=== PATIENT | female | born 1975 | race Caucasian/White ===

== ENCOUNTER → 2023-12-27 | Day surgery (SDC) | payer SELFPAY ==
[2023-12-16 12:25] VITALS: BMI 24.5
[~2023-12-27] MED LIST: DEXAMETHASONE SOD PHOSPHATE 4 MG/1 ML VIAL ONE; EPINEPHrine/PF 1 MG/1 ML (1:1,000) AMPULE ONE; FENTANYL CITRATE/PF 50 MCG/ML VIAL ONE; LACTATED RINGERS SOLUTION 1,000 ML IV SCH; LIDOCAINE HCL 1%, 10 MG/ML (20ML VIAL) ONE; MIDAZOLAM HCL 2 MG/2 ML SINGLE DOSE VIAL ONE; ONDANSETRON 4 MG/2 ML VIAL IVPB PRN; ONDANSETRON 4 MG/2 ML VIAL ONE; PROPOFOL 40 ML ONE; PROPOFOL 60 ML ONE; PROPOFOL 80 ML ONE; ROCURONIUM BROMIDE 50 MG/5 ML SYRINGE ONE; ceFAZolin SODIUM 1 GM VIAL ONE; oxyCODONE HCL 5 MG TABLET ONE; oxyCODONE HCL 5 MG TABLET PO PRN
[2023-12-27 12:32] VITALS: RESP 16; TEMP 97.1
[2023-12-27] MEDS: FENTANYL CITRATE/PF 50 MCG/ML VIAL ONE (12:50)
[2023-12-27] MEDS: ONDANSETRON 4 MG/2 ML VIAL IVPUSH PRN (12:52)
[2023-12-27 13:25] VITALS: PULSE 76
[2023-12-27 13:35] VITALS: BP 98/52
== END | disposition home or self-care (01) ==
LOC: FASU 06:28
PROVIDERS: ATTEND Plastic Surgery
PROC: 0JBD0ZZ Excision of Right Upper Arm Subcutaneous Tissue and Fascia, Open Approach (ICD-10-PCS; 2023-12-27)
PROC: 0JBF0ZZ Excision of Left Upper Arm Subcutaneous Tissue and Fascia, Open Approach (ICD-10-PCS; principal; 2023-12-27 09:13)
DX: L98.7 Excessive and redundant skin and subcutaneous tissue (principal)
CPT/HCPCS: 94760